=== PATIENT | female | born 1970 | race Two or more races ===

== ENCOUNTER → 2022-08-10 | Outpatient (CLI) | payer MEDICAID ==
[~2022-08-10] VITALS: Ht 175.3 cm; Wt 98.4 kg
[2022-08-10 11:42] LABS: Basophils # (auto) 0.1 10 ^3/uL (0-0.2); Basophils % (auto) 0.8 % (0.0-2.0); Eosinophils # (auto) 0.7 10 ^3/uL (0-0.8); Eosinophils % (auto) 5.2 % (0.0-7.0); Hematocrit 48.1 % (36.0-46.0); Hemoglobin 16.2 g/dL (12.2-16.2); Lymphocytes # (auto) 4.4 10 ^3/uL (0.4-5.4); Lymphocytes % (auto) 35.2 % (10.0-50.0); Mean Corpuscular Hemoglobin 29.6 pg (28.0-32.0); Mean Corpuscular Hgb Conc. 33.6 g/dL (32.0-36.0); Mean Corpuscular Volume 88.1 fL (80.0-100.0); Monocytes # (auto) 0.8 10 ^3/uL (0-1.3); Monocytes % (auto) 6.7 % (0.0-12.0); Neutrophils # (auto) 6.5 10 ^3/uL (1.6-8.6); Neutrophils % (auto) 52.1 % (37.0-80.0); Nucleated Red Blood Cells % 0.1 %; Red Blood Cells 5.46 10^6/uL (4.0-5.20); Red Cell Distribution Width 14.9 % (11.8-14.3); White Blood Cell 12.5 10^3/uL (4.4-10.8)
[2022-08-10 11:58] LABS: INR 0.96 (0.9-1.15); Partial Thromboplastin Time 23.7 sec (24.6-33.4)
[2022-08-10 12:21] LABS: Potassium 3.6 mmol/L (3.5-5.1)
[2022-08-10 12:26] LABS: Albumin 3.6 g/dL (3.4-5.0); BUN/Creatinine Ratio 9.9 (10.0-20.0); Bilirubin, Total 0.4 mg/dL (0.2-1.0); Calcium 9.2 mg/dL (8.5-10.1)
[2022-08-10 12:31] LABS: Urine Bacteria NONE SEEN /hpf (None Seen); Urine Blood Negative /uL (Negative); Urine Hyaline Cast FEW /lpf (0 - 2); Urine Mucus FEW (None Seen); Urine Specific Gravity 1.019 (1.001-1.035); Urine WBC 1 /hpf (0 - 5)
== END | disposition home or self-care (01) ==
LOC: GI 11:30 → EDSTATUS 08-12 13:30
PROVIDERS: ATTEND Internal Medicine Gastroenterology
DX: Z01.812 Encounter for preprocedural laboratory examination (principal); K59.00 Constipation, unspecified; E66.9 Obesity, unspecified; F17.210 Nicotine dependence, cigarettes, uncomplicated; F12.90 Cannabis use, unspecified, uncomplicated; Z88.6 Allergy status to analgesic agent; Z88.8 Allergy status to other drugs, medicaments and biological substances; Z98.890 Other specified postprocedural states; Z68.32 Body mass index [BMI] 32.0-32.9, adult
CPT/HCPCS: 36415; 80053; 81001; 85025; 85610; 85730

== ENCOUNTER 2022-11-18 08:48 | Day surgery (SDC) | payer MEDICAID ==
[2022-11-15 11:50] LABS: Basophils # (auto) 0.2 10 ^3/uL (0-0.2); Basophils % (auto) 1.1 % (0.0-2.0); Eosinophils # (auto) 0.6 10 ^3/uL (0-0.8); Hematocrit 48.3 % (36.0-46.0); Hemoglobin 15.9 g/dL (12.2-16.2); Lymphocytes # (auto) 5.1 10 ^3/uL (0.4-5.4); Lymphocytes % (auto) 37.2 % (10.0-50.0); Mean Corpuscular Hemoglobin 28.7 pg (28.0-32.0); Mean Corpuscular Hgb Conc. 32.9 g/dL (32.0-36.0); Mean Corpuscular Volume 87.4 fL (80.0-100.0); Monocytes # (auto) 0.7 10 ^3/uL (0-1.3); Monocytes % (auto) 5.2 % (0.0-12.0); Neutrophils # (auto) 7.2 10 ^3/uL (1.6-8.6); Neutrophils % (auto) 52.5 % (37.0-80.0); Nucleated Red Blood Cells % 0.2 %; Red Blood Cells 5.53 10^6/uL (4.0-5.20); Red Cell Distribution Width 14.4 % (11.8-14.3); White Blood Cell 13.8 10^3/uL (4.4-10.8)
[2022-11-15 12:38] LABS: Partial Thromboplastin Time 23.3 SEC (24.5-34.5); Prothrombin Time 10.5 sec (9.3-11.8)
[2022-11-15 12:58] LABS: Urine Bacteria NONE SEEN /hpf (None Seen); Urine Hyaline Cast FEW /lpf (0 - 2); Urine Mucus FEW (None Seen); Urine WBC 2 /hpf (0 - 5)
[2022-11-15 13:01] LABS: Albumin 3.2 g/dL (3.4-5.0); Calcium 8.7 mg/dL (8.5-10.1); Potassium 3.2 mmol/L (3.5-5.1)
[2022-11-15 13:05] LABS: BUN/Creatinine Ratio 12.4 (10.0-20.0); Bilirubin, Total 0.4 mg/dL (0.2-1.0); Total Protein 7.9 g/dL (6.4-8.2)
[2022-11-15 13:57] LABS: Urine Clarity HAZY (Clear); Urine Color Red (Yellow); Urine Specific Gravity 1.016 (1.001-1.035)
[2022-11-15 13:58] LABS: Urine Blood Negative /uL (Negative); Urine Protein, UAD Negative (Negative); Urine Urobilinogen Normal (Negative); Urine pH 5.5 (5.0-8.0)
[~2022-11-18] VITALS: Ht 175.3 cm; Wt 98.4 kg
[~2022-11-18 08:48] MED LIST: ALBUAER3 IN; AMPH10TA2 PO; BREX1TAB4 PO; CYCL-611 PO; ESCI20TA PO; HYDR-4297 PO; OXYC15TA77 PO; PRA1C PO; TORS20TA19 PO
[2022-11-18 08:54] VITALS: BP 140/90; PULSE 65; RESP 14; TEMP 97.1; O2SAT 94
[2022-11-18] MEDS ORDERED: fentaNYL CITRATE 100 MCG/2 ML VL ONE (09:55)
[2022-11-18] MEDS ORDERED: MEPERIDINE HCL (25 MG/ML) 1ML VIAL ONE (09:55)
[2022-11-18] MEDS ORDERED: MIDAZOLAM HCL 2MG/2ML 2ml VIAL (1mg/ml) ONE (09:56)
[2022-11-18] MEDS ORDERED: ePHEDrine SULFATE 50 MG/ML AMP IV PRN (10:15)
[2022-11-18] MEDS ORDERED: MIDAZOLAM HCL 2MG/2ML 2ml VIAL (1mg/ml) IV PRN (10:15)
[2022-11-18] MEDS ORDERED: ONDANSETRON HCL 4 MG/2 ML VIAL IV PRN (10:15)
[2022-11-18] MEDS ORDERED: MORPHINE SULFATE 4 MG/ML SYR/VIAL IV PRN (10:15)
[2022-11-18] MEDS ORDERED: LABETALOL HCL 5 MG/ML 4ML SYRINGE IV PRN (10:15)
[2022-11-18] MEDS ORDERED: PROPOFOL 10 MG/ML 20 ML IV ONE (10:20)
== END 2022-11-18 11:25 | disposition home or self-care (01) ==
LOC: GI 08:48
PROVIDERS: ATTEND Internal Medicine Gastroenterology
DX: K59.00 Constipation, unspecified (principal); K64.8 Other hemorrhoids
CPT/HCPCS: 36415; 45378; 80053; 81001; 85025; 85610; 85730; J2175; J2250; J2704; J3010; J7030